=== PATIENT | female | born 1980 | race Caucasian/White ===

== ENCOUNTER 2016-10-24 12:51 | Emergency (ER) | payer MEDICAID ==
[~2016-10-24] VITALS: Ht 167.6 cm; Wt 72.4 kg
[~2016-10-24 12:51] MED LIST: CALC-72 PO; CETI10CA PO; METR500T PO; ONDA4TAB10 PO; OXYC-302 PO; POTA5TAB2 PO; [UNRECOGNIZED DRUG - CODE]
[2016-10-24] MEDS ORDERED: SODIUM CHLORIDE 0.9% 1,000 ML IV ONE (13:27)
[2016-10-24] MEDS ORDERED: SODIUM CHLORIDE 0.9% 1,000ML IVBOLUS ONE (13:30)
[2016-10-24] MEDS ORDERED: ONDANSETRON 2MG/ML, 2ML IVPush ONE ×2 (13:30→16:00)
[2016-10-24] MEDS ORDERED: KETOROLAC 30 MG/1 ML IVPush ONE (13:30)
[2016-10-24 14:28] LABS: ASPARTATE AMINO TRANSFERASE 14 U/L (15-37); BLOOD UREA NITROGEN 13 mg/dL (7-18)
[2016-10-24] MEDS ORDERED: HYDROmorphone 1 MG/ML, 1ML ONE ×2 (15:24→16:14)
[2016-10-24] MEDS ORDERED: KETOROLAC 30 MG/1 ML ONE (15:24)
[2016-10-24] MEDS ORDERED: ONDANSETRON 2MG/ML, 2ML ONE (15:24)
[2016-10-24] MEDS: HYDROmorphone 1 MG/ML, 1ML IVPush PRN ×2 (15:30→16:24)
[2016-10-24] MEDS ORDERED: NS + 20MEQ KCL 1,000 ML IV ONE (15:48)
[2016-10-24] MEDS ORDERED: DIPHENHYDRAMINE 50 MG/ML, 1ML ONE (15:48)
[2016-10-24] MEDS ORDERED: DIPHENHYDRAMINE 50 MG/ML, 1ML IVPush ONE (16:00)
[2016-10-24] MEDS ORDERED: POTASSIUM CHLORIDE 20 MEQ in SODIUM CHLORIDE 0.9% 250 ML IV ONE (16:00)
[2016-10-24 16:45] VITALS: BP 95/40
== END 2016-10-24 17:58 | disposition home or self-care (01) ==
LOC: ED 17:52
DX: R10.9 Unspecified abdominal pain (principal); E87.6 Hypokalemia; Z98.51 Tubal ligation status; Z90.5 Acquired absence of kidney
CPT/HCPCS: 36415; 74176; 80053; 81001; 83690; 83735; 84703; 85025; 87086; 96361; 96374; 96375; 96376; 99285; J1170; J1885; J2405; J3480; J7030; J7050

== ENCOUNTER 2020-11-16 19:55 | Emergency (ER) | payer MEDICAID ==
[~2020-11-16] VITALS: Ht 170.2 cm; Wt 70.6 kg
[~2020-11-16 19:55] MED LIST changes: +CALC-534 PO; -CALC-72 PO; -OXYC-302 PO; +OXYC1TAB14 PO
[2020-11-16 20:33] LABS: MICROSCOPIC NOT IND
[2020-11-16 20:45] LABS: BASOPHILS % (AUTO) 1 % (0-1); EOSINOPHILS % (AUTO) 2 % (1-7); LYMPHOCYTES % (AUTO) 34 % (22-44); MEAN CORPUSCULAR HEMOGLOBIN 30.2 pg (27.0-34.8); MEAN CORPUSCULAR HGB CONC 32.7 g/dL (32.4-35.8); MEAN PLATELET VOLUME 8.1 fL (7.4-10.4); MONOCYTES % (AUTO) 6 % (2-9); NEUTROPHILS % (AUTO) 57 % (42-75); PLATELET COUNT 251 x10^3/uL (130-400); RED BLOOD COUNT 4.36 x10^6/uL (3.82-5.3)
[2020-11-16 20:54] LABS: ALANINE AMINOTRANSFERASE 20 U/L (12-78); ALBUMIN 3.7 g/dL (3.4-5.0); ANION GAP 6 mmol/L (5-15); CALCIUM 8.4 mg/dL (8.5-10.1); CHLORIDE 106 mmol/L (98-107); CREATININE 0.61 mg/dL (0.55-1.02)
[2020-11-16 20:58] LABS: ALKALINE PHOSPHATASE 59 U/L (45-117); BILIRUBIN,TOTAL 0.3 mg/dL (0.2-1.0)
[2020-11-17] MEDS ORDERED: SODIUM CHLORIDE 0.9% 1,000ML IVBOLUS ONE
[2020-11-17] MEDS ORDERED: SODIUM CHLORIDE FLUSH 10ML SYR IVF ONE
--- NOTE | 2020-11-17 01:15 | NUR ---
PT LAYING IN BED, A/OX4, ALL NEEDS IN REACH, CALL LIGHT IN REACH, NAD AT THIS TIME
--- NOTE | 2020-11-17 01:57 | NUR ---
BREAK RN: PT. IVF ALMOST COMPLETED AT THIS TIME. PT. REQUESTING D/C. UPDATED MD.
[2020-11-17 02:09] VITALS: BP 101/62
== END 2020-11-17 02:29 | disposition home or self-care (01) ==
LOC: ED 22:45
DX: R55 Syncope and collapse (principal); Z20.822 Contact with and (suspected) exposure to COVID-19; R94.31 Abnormal electrocardiogram [ECG] [EKG]; Z87.891 Personal history of nicotine dependence
CPT/HCPCS: 36415; 71046; 80053; 81003; 84439; 84443; 84703; 85025; 93005; 96360; 96361; 99285; J7030; U0003; U0005